=== PATIENT | male | born 1960 | race American Indian/Alaskan Native ===

== ENCOUNTER 2017-11-27 08:37 | Day surgery (SDC) | payer OTHER ==
[~2017-11-27] VITALS: Ht 188 cm; Wt 204.6 kg
[~2017-11-27 08:37] MED LIST: AFREZZA1 EAC1 SC; ALLERGY RELIEF10 MG PO; CETI5 PO; Echinacea & Go1 EACH PO; Excedrin Extra1 EACH PO; GABA400 PO; Hydrocodone-Ap1 EA20 PO; INSR10I SC; INSULANPEN SC; LISHYD1012 PO; METH5 PO; SIMV10 PO; TURMERIC500 M1 PO; VENL75ER PO; VENLAFAXINE H37.5 MG PO; VITAMIN C ROSE HIPS PO; ZESTORETIC 20-121 EA PO
== END 2017-11-27 11:25 | disposition home or self-care (01) ==
LOC: ORSCMMR 08:37 → ORD 09:30 → ORSCMMR 10:15 → ORD 10:30 → ORSCMMR 11:25
PROVIDERS: Surgery
PROC: 0DBH8ZX Excision of Cecum, Via Natural or Artificial Opening Endoscopic, Diagnostic (ICD-10-PCS; principal; 2017-11-27 10:15)
DX: Z86.010 Personal history of colon polyps (principal); D12.0 Benign neoplasm of cecum; G47.30 Sleep apnea, unspecified; E11.9 Type 2 diabetes mellitus without complications; F32.9 Major depressive disorder, single episode, unspecified; I10 Essential (primary) hypertension; G47.33 Obstructive sleep apnea (adult) (pediatric); E78.00 Pure hypercholesterolemia, unspecified; E66.01 Morbid (severe) obesity due to excess calories; Z68.43 Body mass index [BMI] 50.0-59.9, adult; Z79.4 Long term (current) use of insulin; Z79.899 Other long term (current) drug therapy
CPT/HCPCS: 82947; 88305; J7120

== ENCOUNTER 2021-04-16 07:30 | Inpatient (IN) | payer OTHER ==
[~2021-04-16] VITALS: Ht 188 cm; Wt 196.4 kg
[~2021-04-16 07:30] MED LIST changes: +GABA300 PO; -VENLAFAXINE H37.5 MG PO
[2021-04-16 08:34] LABS: Source, Urine Catheter
[2021-04-16] MEDS ORDERED: HUMULIN R500 UNIT/1 SC ×2 (08:41→08:42)
[2021-04-16 08:43] LABS: Appearance, Urine Cloudy (Clear); Bilirubin, Urine Neg (Neg); Blood, Urine 5+ (Neg); Color, Urine Yellow (P-Yellow); Glucose Qualitative, Urine 2+ (Neg); Ketones, Urine Neg (Neg); Leukocyte Esterase, Urine 3+ (Neg); Nitrite, Urine Neg (Neg); Protein, Urine 4+ (Neg); Urobilinogen, Urine NORM (Normal)
[2021-04-16 08:53] LABS: Hematocrit 34.3 % (37.0-53.0); Hemoglobin 11.1 g/dL (13.5-17.5); Mean Corpuscular HGB 29.6 pg (26.0-34.0); Mean Corpuscular HGB Conc 32.4 g/dL (31.5-36.5); Mean Corpuscular Volume 92 fL (80-100); Mean Platelet Volume 10.4 fL (9.1-12.4); Platelet Count 334 K/mm3 (150-400); RDW Coefficient Variation 13.3 % (11.7-14.2); Red Blood Cell Count 3.75 M/mm3 (4.30-5.90)
[2021-04-16 08:57] LABS: White Blood Cell Count 55.48 K/mm3 (4.00-11.30)
[2021-04-16 09:02] LABS: White Blood Cells, Urine TNTC /hpf (0-5)
[2021-04-16 09:03] LABS: Bacteria Many /hpf; Squamous Epithelial Cells Few /hpf (Few)
[2021-04-16 09:04] LABS: Transitional Epithelial Cells Rare /hpf (0-Rare)
[2021-04-16 09:14] LABS: BAND PERCENT MAN 12 % (0-8); BASOPHILS PERCENT MAN 0 % (0-2); EOSINOPHILS PERCENT MAN 0 % (0-6); LYMPHOCYTES ABSOLUTE MAN 0.55 K/mm3 (0.84-5.20); LYMPHOCYTES PERCENT MAN 1 % (21-46); MONOCYTES ABSOLUTE MAN 1.66 K/mm3 (0.16-1.47); MONOCYTES PERCENT MAN 3 % (4-13); NEUTROPHILS ABSOLUTE MAN 53.26 K/mm3 (1.96-9.15); SEG NEUTROPHILS PERCENT MAN 84 % (41-73); TOTAL CELLS COUNTED 100
[2021-04-16 09:23] LABS: Alanine Aminotransfer (ALT/SGP 30 U/L (12-78); Albumin, Blood 2.5 g/dL (3.4-5.0); Albumin/Globulin Ratio 0.7 (0.8-1.8); Alk Phos 82 U/L (50-136); Anion Gap 13 mmol/L (6-16); Aspartate Aminotrans (AST/SGOT 22 U/L (12-37); Bilirubin, Total 0.8 mg/dL (0.1-1.0); Blood Urea Nitrogen 38 mg/dL (8-24); Bun/Creatinine Ratio 14.3 (12.0-20.0); CO2, Blood 20 mmol/L (21-32); Calcium, Blood 7.9 mg/dL (8.5-10.1); Chloride, Blood 105 mmol/L (98-108); Creatinine, Blood 2.66 mg/dL (0.60-1.20); Globulin, Blood 3.7 g/dL (2.2-4.0); Glomerular Filtration Rate 25 (60-); Glucose, Blood 314 mg/dL (70-99); Sodium, Blood 138 mmol/L (136-145); Total Protein, Blood 6.2 g/dL (6.4-8.2); Troponin I <0.015 ng/mL (0.000-0.040)
[2021-04-16 10:05] LABS: C DIFFICILE DNA NEGATIVE (Negative)
[2021-04-16 12:36] LABS: SARS-Cov-2 (COVID-19) PCR, MMC NEGATIVE (NEGATIVE)
[2021-04-16] MEDS ORDERED: HYDCHL25 PO (12:45)
[2021-04-16] MEDS ORDERED: GABA300 PO (12:45)
[2021-04-16] MEDS ORDERED: ALLEGRA ALLERG180 MG PO (12:52)
[2021-04-16] MEDS ORDERED: MELATONIN5 M1 PO (12:57)
[2021-04-16 13:18] LABS: U Amphetamine Screen Not Detected; U Barbituate Screen Not Detected; U Benzodiazapine Screen Not Detected; U Buprenorphine Screen Not Detected; U Cannabinoids Screen Not Detected; U Cocaine Screen Not Detected; U Methadone Screen Not Detected; U Methamphetamine Screen Not Detected; U Opiates Screen DETECTED; U Oxycodone Screen Not Detected; U Phencyclidine Screen Not Detected; U Propoxyphene Screen Not Detected
[2021-04-16 13:43] LABS: Base Excess Venous -10.3 mmol/L; Bicarbonate Venous 16.6 mmol/L (24.0-30.0); PCO2 Venous 37.9 mmHg (38-42); PO2 Venous 51.9 mmHg (38-42); pH Blood Venous 7.26 (7.34-7.37)
[2021-04-16 15:22] LABS: Base Excess Venous -11.7 mmol/L; Bicarbonate Venous 15.8 mmol/L (24.0-30.0); PCO2 Venous 39.5 mmHg (38-42); PO2 Venous 159 mmHg (38-42)
[2021-04-16 15:23] LABS: pH Blood Venous 7.22 (7.34-7.37)
--- NOTE | 2021-04-16 18:32 | NUR ---
PT ARRIVED IN THE UNIT VIA STRETCHER FROM ED PT TRANSFERRED VIA SLIDE SHEET TO HOSPITAL BED REPORT RECEIVED FROM EMI CONN. PT WAS ON LEVOPHED GTT AT 20 AND VASO AT 0.03 UPON ARRIVAL AND BP SYSTOLIC WAS 80'S-90'S, PT WAS GIVEN NS BOLUS AND LR BOLUS PER REPORT LR NOW RUNNING AT 150MLS/HR. PT FULLY ALERT AND ORIENTED, APPEARS DRY, PALE AND WEAK. PT ALSO WAS RUNNING A FEVER 101.1 TYLENOL WAS GIVEN AND BROUGHT TEMP DOWN TO 100. PT C/O ABD AND BACK PAIN WAS GIVEN FENTANYL IN THE ER PT STATED TYLENOL SEEMED TO HELP. PINO DRAINING CLOUDY URINE VIA GRAVITY NOT PUTTING OUT MUCH OUTPUT AT THIS TIME. RIGHT JUGULAR CENTRAL LINE SITE AND DRESSING CDI. PT RESTING AT THIS TIME. VASO ON STAND BY CURRENT BP 109/62 MAP 76. PT ABLE TO MAKE NEEDS KNOWN WILL REPORT TO ONCOMING SHIFT
--- NOTE | 2021-04-16 20:06 | NUR ---
OFFERED PATIENT COUPLE BITES OF JELLO. IMMEDIATELY VOMITED SMALL AMOUNT OF CHUNKY NON-LIQUID EMESIS. MEDICATED WITH ZOFRAN.
--- NOTE | 2021-04-16 20:34 | NUR ---
OXYGEN REMOVED AND CPAP PLACED ON PATIENT. SATS REMAINED ABOVE 93%.
[2021-04-17 04:06] LABS: Hematocrit 34.5 % (37.0-53.0); Hemoglobin 11.2 g/dL (13.5-17.5); Mean Corpuscular HGB 29.8 pg (26.0-34.0); Mean Corpuscular HGB Conc 32.5 g/dL (31.5-36.5); Mean Corpuscular Volume 92 fL (80-100); Mean Platelet Volume 10.6 fL (9.1-12.4); Platelet Count 270 K/mm3 (150-400); RDW Coefficient Variation 13.9 % (11.7-14.2); Red Blood Cell Count 3.76 M/mm3 (4.30-5.90); White Blood Cell Count 45.77 K/mm3 (4.00-11.30)
[2021-04-17 04:28] LABS: Albumin, Blood 2.7 g/dL (3.4-5.0); Albumin/Globulin Ratio 0.6 (0.8-1.8); Bilirubin, Total 0.6 mg/dL (0.1-1.0); Bun/Creatinine Ratio 12.6 (12.0-20.0); Creatinine, Blood 3.5 mg/dL (0.60-1.20); Globulin, Blood 4.2 g/dL (2.2-4.0); Magnesium, Blood 1.7 mg/dL (1.6-2.4); Potassium, Blood 4.9 mmol/L (3.5-5.5); Total Protein, Blood 6.9 g/dL (6.4-8.2)
[2021-04-17 05:56] LABS: BAND PERCENT MAN 13 % (0-8); BASOPHILS PERCENT MAN 0 % (0-2); EOSINOPHILS PERCENT MAN 0 % (0-6); LYMPHOCYTES ABSOLUTE MAN 0.91 K/mm3 (0.84-5.20); LYMPHOCYTES PERCENT MAN 2 % (21-46); METAMYELOCYTE ABSOLUTE MAN 0.91 K/mm3 (0.00-0.00); METAMYELOCYTE PERCENT MAN 2 % (0-0); MONOCYTES ABSOLUTE MAN 2.74 K/mm3 (0.16-1.47); MONOCYTES PERCENT MAN 6 % (4-13); NEUTROPHILS ABSOLUTE MAN 41.19 K/mm3 (1.96-9.15); SEG NEUTROPHILS PERCENT MAN 77 % (41-73); TOTAL CELLS COUNTED 100
--- NOTE | 2021-04-17 05:57 | NUR ---
SHIFT SUMMARY PATIENT ALERT AND ORIENTED WHEN AWAKE THROUGHOUT SHIFT. OCCASIONAL NAUSEA AND 2 EPISODES OF VOMITING THIS SHIFT. MEDICATED WITH ZOFRAN AND REGLAN PER EMAR. LEVOPHED TITRATED TO MAINTAIN STABLE BP. LR RUNNING. ROUTINE ABX. NSR AT 92 PER TELE. STARTED SHIFT ON 2L O2 NC. SWITCHED TO CPAP FOR SLEEP AND MAINTAINED SATS ABOVE 92%. MEDICATED FOR L FLANK AND LOWER BACK PAIN WITH FENTANYL, SEE EMAR. 1 BM THIS SHIFT. PINO PATENT AND DRAINING DARK URINE. DRESSING TO NECK CENTRAL LINE CHANGED THIS SHIFT. CALLS APPROPRIATELY.
--- NOTE | 2021-04-17 07:15 | NUR ---
ASSUMPTION OF CARE: ASSUMED CARE OF PATIENT AT 715 ON 04/17/2021. PATIENT HAD LEVOPHED INFUSING AT 9. NEEDED LINEN CHANGE DUE TO BM OF DIARRHEA. GENERAL WEAKNESS OF EXTREMES, LE WORSE THAN UE. PEDAL PULSES FAINT, FILLING CARRIER REPORTS 1ST DEGREE SR. DENIES CHEST PAIN.LOWER BACK PAIN MEDIACTED PER EMR. RA SAT >94 SPO2. COARSE BILAT. PINO DRAINING TO GRAVITY DARK TEA COLERED.
[2021-04-17 09:16] LABS: Vancomycin, Random 15.8 ug/mL
--- NOTE | 2021-04-17 18:34 | NUR ---
END OF CARE SUMMARY: PATIENT IS NO LONG ON LEVOPHED, HOWEVER, STILL HUNG AND ON STANDBY, AND IS THE VASOPRESSIN. MAP HAS BEEN GREATER THAN 65. DENIES CHEST PAIN. PATIENT HAS BEEN SR, 1ST DEGREE HEART BLOCK WITH OCCASSIONAL PAC'S PAIN HAS ONLY BEEN IN ABD, SUPRAPUBIC, AND BACK, MEDICATED PER EMR. PATIENT IS ON RA. BREATHES BETTER WITH HOB 30 DEGREES. LR GOING AT 150. PATIENT HAS GENERALIZED WEAKNESS OF EXTREMES LOWER WORSE THAN UPPER. ALERT TO SELF, PLACE, PERSON, TIME, AND FOLLOWING DIRECTION. NO SKIN BREAKDOWN, SHIFTS TO DISCOMFORT. CENTRAL LINE IN PLACE FLSUHES AND DRAWS WNL.
--- NOTE | 2021-04-17 19:38 | NUR ---
REPORT RECEIVED-CARE ASSUMED-GTTS/RATES/VITALS NOTED IN FLOWSHEET. SURGE SHIFT ASSESSMENT.
--- NOTE | 2021-04-17 22:27 | NUR ---
PT REQUEST TO STAY SUPINE FOR THE NIGHT-DISCUSSED THE ADVANTAGE TO Q2 TURNS AND REPOSITIONING-DISCUSSED THE CHANCE OF SKIN BRAKEDOWN IF NOT TURNING- PT IS A&O-ABLE TO MAKE DECISIONS-DOES NOT WANT TO TURN AT THIS TIME-WILL CONTINUE TO CHECK IN WITH PT T/O NIGHT ON REPOSITIONING.
--- NOTE | 2021-04-18 00:05 | NUR ---
ASSESS NO CHANGES WITH PT-ON CPAP -RA, RESTING. BM X 1 TONIGHT. CONTINUE ASSESSMENTS AND CARE.
--- NOTE | 2021-04-18 05:58 | NUR ---
END OF SHIFT NOTE PT SLEPT ON CPAP-RA OVERNIGHT.PT A&O X 4. REQUESTED PAIN MEDS X2 OVERNIGHT FOR LEFT FLANK AND BACK PAIN. LEVO AND VASO REMAINED OFF ENTIRE SHIFT. LR INFUSING @ 150 ML/HR. 1 LRG BM. PINO WITH LOW UO TOTAL OF 300 ML TEA COLOR OVERNIGHT. NO LABS WERE ORDERED FOR AM- CONTINUE ASSESSEMENTS AND CARE TILL REPORT OFF TO ONCOMING SHIFT RN.
[2021-04-18 07:25] LABS: Hematocrit 28.5 % (37.0-53.0); Hemoglobin 9.5 g/dL (13.5-17.5); Mean Corpuscular HGB Conc 33.3 g/dL (31.5-36.5); Mean Corpuscular Volume 90 fL (80-100); Mean Platelet Volume 10.3 fL (9.1-12.4); Platelet Count 175 K/mm3 (150-400); RDW Standard Deviation 46.5 fL (35.1-46.3); Red Blood Cell Count 3.17 M/mm3 (4.30-5.90); White Blood Cell Count 22.16 K/mm3 (4.00-11.30)
[2021-04-18 07:41] LABS: Anion Gap 9 mmol/L (6-16); Blood Urea Nitrogen 58 mg/dL (8-24); Bun/Creatinine Ratio 16.2 (12.0-20.0); CO2, Blood 21 mmol/L (21-32); Chloride, Blood 106 mmol/L (98-108); Creatinine, Blood 3.59 mg/dL (0.60-1.20); Glomerular Filtration Rate 18 (60-); Glucose, Blood 137 mg/dL (70-99); Phosphorus, Blood 3.5 mg/dL (2.5-4.9); Sodium, Blood 136 mmol/L (136-145)
[2021-04-18 07:45] LABS: BAND PERCENT MAN 7 % (0-8); BASOPHILS PERCENT MAN 0 % (0-2); EOSINOPHILS PERCENT MAN 0 % (0-6); LYMPHOCYTES ABSOLUTE MAN 0.88 K/mm3 (0.84-5.20); LYMPHOCYTES PERCENT MAN 4 % (21-46); MONOCYTES ABSOLUTE MAN 0.22 K/mm3 (0.16-1.47); MONOCYTES PERCENT MAN 1 % (4-13); NEUTROPHILS ABSOLUTE MAN 21.05 K/mm3 (1.96-9.15); SEG NEUTROPHILS PERCENT MAN 88 % (41-73); TOTAL CELLS COUNTED 100
--- NOTE | 2021-04-18 09:53 | NUR ---
ASSUMED CARE REPORT FROM DANIA CONN AT 0700. PT RESTING IN BED. A&O X4. FOLLOWS COMMANDS, ABLE TO MAKE NEEDS KNOWN. C/O LEFT FLANK PAIN, 03/05. MEDICATED c FENTANYL ORDERED. ABD ROUND, SOFT, DIFFUSE TENDERNESS. BT X 4. HX OF STONE c STENT PLACEMENT. PINO IN PLACE, YELLOW CLOUDY URINE OUT. LEVO ON STANDBY SINCE YESTERDAY. STATUS CHANGED TO MED s TELE. LR INFUSING AT 150 ML/HR. CVC TO RIJ REMOVED, PETROLEUM DRESSING AND OPSITE PLACED. POWERGLIDE PLACED TO [facility]. PT TRANSFERRED TO MEDICAL FLOOR. ALL BELONGINGS c PT. REPORT TO AHMET CONN.
--- NOTE | 2021-04-18 11:20 | NUR ---
ASSUMPTION OF CARE THIS NURSE RECEIVED REPORT FROM CHANDRAKANT CONN ON PCU. THE PATIENT ARRIVED AT 1000. THE PATIENT'S VITALS ARE STABLE AND PATIENT HAS BEEN ACCLIMATED TO THE ROOM.
--- NOTE | 2021-04-18 17:23 | NUR ---
SHIFT SUMMARY THE PATIENT IS ALERT AND ORIENTED, AND COOPERATIVE WITH CARE. THE PATIENT WORKED WITH PHYSICAL THERAPY AND OCCUPATIONAL THERAPY AT BEDSIDE THIS SHIFT. THE PATIENT HAS BEEN RECEIVING PAIN MEDS ORDERED. PINO PATENT AND DRAINING TO GRAVITY. LACTATED RINGERS RUNNING AT 200MLS/HR. NO ACUTE CHANGES THIS SHIFT, VSS.
[2021-04-19 04:33] LABS: BASOPHILS ABSOLUTE AUTO 0.06 K/mm3 (0.00-0.23); BASOPHILS PERCENT AUTO 0 % (0-2); Hematocrit 30.4 % (37.0-53.0); LYMPHOCYTES ABSOLUTE AUTO 0.86 K/mm3 (0.84-5.20); LYMPHOCYTES PERCENT AUTO 6 % (21-46); MONOCYTES ABSOLUTE AUTO 0.87 K/mm3 (0.16-1.47); MONOCYTES PERCENT AUTO 6 % (4-13); Mean Corpuscular HGB 29.4 pg (26.0-34.0); Mean Corpuscular HGB Conc 32.9 g/dL (31.5-36.5); Mean Corpuscular Volume 89 fL (80-100); Mean Platelet Volume 10.8 fL (9.1-12.4); Platelet Count 189 K/mm3 (150-400); RDW Coefficient Variation 13.7 % (11.7-14.2); White Blood Cell Count 15.55 K/mm3 (4.00-11.30)
[2021-04-19 04:38] LABS: EOSINOPHILS ABSOLUTE AUTO 0.08 K/mm3 (0.00-0.68); EOSINOPHILS PERCENT AUTO 1 % (0-6); IMMATURE GRAN ABSOLUTE AUTO 0.19 K/mm3 (0.00-0.10); IMMATURE GRAN PERCENT AUTO 1 % (0-1); NEUTROPHILS ABSOLUTE AUTO 13.49 K/mm3 (1.96-9.15); NEUTROPHILS PERCENT AUTO 87 % (41-73)
[2021-04-19 04:53] LABS: Bun/Creatinine Ratio 19.7 (12.0-20.0); Calcium, Blood 8.3 mg/dL (8.5-10.1); Potassium, Blood 3.8 mmol/L (3.5-5.5)
--- NOTE | 2021-04-19 07:22 | NUR ---
PATIENT SUMMARY PATIENT IS ALERT AND ORIENTED X4. VS STABLE FOR PATIENT. PAIN MEDICATION GIVEN TO PATIENT PER REQUEST AROUND THE CLOCK. PT COMPLAINED OF BACK PAIN. HELD HEPARIN MY SHIFT D/T BLEEDING GUMS. ENDORSED TO ONCOMING SHIFT. MEDICATION AND CARES COMPLETED AND GIVEN ORDERED ACCORDING TO NURSING JUDGEMENT. ALL UNFINISHED CARES ENDORSED TO ONCOMING RN.
[2021-04-19] MEDS ORDERED: CIPR500 PO (12:13)
[2021-04-19] MEDS ORDERED: INSULANPEN SC (14:38)
[2021-04-19] MEDS ORDERED: HUMULIN R500 UNIT/1 SC ×2 (14:40)
[2021-04-19 15:05] LABS: SARS-Cov-2 (COVID-19) PCR, MMC NEGATIVE (NEGATIVE)
--- NOTE | 2021-04-19 18:50 | NUR ---
PATIENT DISCHARGED TO SNF VIA GURNEY THROUGH [facility]. BELONGINGS WITH THE PATIENT. THERE IS NO CONCERNS FOR THE PATIENT UPON DISCHARGE.
== END 2021-04-19 19:10 | DRG 698 ==
LOC: ER 07:30 → ICUW 12:34 → PCU 15:43 → MEDS 04-18 10:07
PROVIDERS: Emergency Medicine; Family Medicine; Hospitalist; Nurse Practitioner Acute Care; Pharmacist; ADMIT Hospitalist
PROC: 3E033XZ Introduction of Vasopressor into Peripheral Vein, Percutaneous Approach (ICD-10-PCS; principal; 2021-04-16)
DX: T83.592A Infection and inflammatory reaction due to indwelling ureteral stent, initial encounter (principal); A41.59 Other Gram-negative sepsis; R65.21 Severe sepsis with septic shock; N17.9 Acute kidney failure, unspecified; N39.0 Urinary tract infection, site not specified; N28.89 Other specified disorders of kidney and ureter; E11.9 Type 2 diabetes mellitus without complications; D64.9 Anemia, unspecified; F32.9 Major depressive disorder, single episode, unspecified; E66.01 Morbid (severe) obesity due to excess calories; I10 Essential (primary) hypertension; G43.909 Migraine, unspecified, not intractable, without status migrainosus; Z88.5 Allergy status to narcotic agent; Z88.0 Allergy status to penicillin; Z79.4 Long term (current) use of insulin; Z79.899 Other long term (current) drug therapy
CPT/HCPCS: 36415; 36556; 51702; 71045; 74150; 76705; 80048; 80053; 80202; 81001; 82550; 82803; 82947; 83605; 83690; 83735; 83880; 84100; 84145; 84484; 85025; 87040; 87077; 87086; 87186; 87493; 93005; 93010; 94762; 96361-59; 96365-59; 96366-59; 96367-59; 96368; 96375-59; 97110; 97162; 97166; 97530; 99285-25; A9270; C1751; J1170; J1644; J1815; J1956; J2185; J2405; J2765; J3010; J3370; J3475; J7030; J7040; J7050; J7060; J7120; P9046; U0004

== ENCOUNTER 2021-05-19 14:27 | Emergency (ER) | payer OTHER ==
[~2021-05-19] VITALS: Ht 188 cm; Wt 186.9 kg
[~2021-05-19 14:27] MED LIST changes: +ALLEGRA ALLERG180 MG PO; +CIPR500 PO; +HUMULIN R500 UNIT/1 SC; +HYDCHL25 PO; +MELATONIN5 M1 PO
[2021-05-19] MEDS ORDERED: LISI20 PO (15:05)
[2021-05-19 15:06] LABS: Alanine Aminotransfer (ALT/SGP 13 U/L (12-78); Albumin, Blood 2.8 g/dL (3.4-5.0); Albumin/Globulin Ratio 0.5 (0.8-1.8); Alk Phos 98 U/L (50-136); Anion Gap 6 mmol/L (6-16); Aspartate Aminotrans (AST/SGOT 13 U/L (12-37); Bilirubin, Total 0.6 mg/dL (0.1-1.0); Blood Urea Nitrogen 21 mg/dL (8-24); Bun/Creatinine Ratio 19.6 (12.0-20.0); CO2, Blood 22 mmol/L (21-32); Calcium, Blood 9.1 mg/dL (8.5-10.1); Chloride, Blood 105 mmol/L (98-108); Creatinine, Blood 1.07 mg/dL (0.60-1.20); Globulin, Blood 5.3 g/dL (2.2-4.0); Glomerular Filtration Rate >60 (60-); Glucose, Blood 192 mg/dL (70-99); Potassium, Blood 4.8 mmol/L (3.5-5.5); Sodium, Blood 133 mmol/L (136-145); Total Protein, Blood 8.1 g/dL (6.4-8.2)
[2021-05-19 16:45] LABS: Source, Urine Catheter
[2021-05-19 16:50] LABS: Appearance, Urine Clear (Clear); Bilirubin, Urine Neg (Neg); Blood, Urine 5+ (Neg); Color, Urine Yellow (P-Yellow); Glucose Qualitative, Urine Neg (Neg); Ketones, Urine Neg (Neg); Leukocyte Esterase, Urine 3+ (Neg); Nitrite, Urine Neg (Neg); Protein, Urine 3+ (Neg); Urobilinogen, Urine NORM (Normal)
[2021-05-19 17:03] LABS: Squamous Epithelial Cells Few /hpf (Few); White Blood Cells, Urine TNTC /hpf (0-5)
[2021-05-19 17:06] LABS: Bacteria Many /hpf; Yeast/Fungi Urine Many /hpf
[2021-05-19 17:19] LABS: BASOPHILS ABSOLUTE AUTO 0.05 K/mm3 (0.00-0.23); BASOPHILS PERCENT AUTO 0 % (0-2); EOSINOPHILS PERCENT AUTO 0 % (0-6); Hematocrit 34.4 % (37.0-53.0); Hemoglobin 11.4 g/dL (13.5-17.5); IMMATURE GRAN ABSOLUTE AUTO 0.09 K/mm3 (0.00-0.10); IMMATURE GRAN PERCENT AUTO 1 % (0-1); LYMPHOCYTES ABSOLUTE AUTO 1.32 K/mm3 (0.84-5.20); LYMPHOCYTES PERCENT AUTO 10 % (21-46); MONOCYTES ABSOLUTE AUTO 0.87 K/mm3 (0.16-1.47); MONOCYTES PERCENT AUTO 6 % (4-13); Mean Corpuscular HGB 29.4 pg (26.0-34.0); Mean Corpuscular HGB Conc 33.1 g/dL (31.5-36.5); Mean Corpuscular Volume 89 fL (80-100); Mean Platelet Volume 10.2 fL (9.1-12.4); NEUTROPHILS ABSOLUTE AUTO 11.22 K/mm3 (1.96-9.15); NEUTROPHILS PERCENT AUTO 83 % (41-73); Platelet Count 324 K/mm3 (150-400); RDW Standard Deviation 45.1 fL (35.1-46.3); Red Blood Cell Count 3.88 M/mm3 (4.30-5.90); White Blood Cell Count 13.55 K/mm3 (4.00-11.30)
[2021-05-19 17:34] LABS: International Normalized Ratio 1.1; Prothrombin Time Results 11.5 Sec (9.7-11.5)
[2021-05-19] MEDS ORDERED: ONDA4ODT MM ×2 (18:42→19:15)
[2021-05-19] MEDS ORDERED: LEVFLO500 PO ×2 (18:42→19:15)
[2021-05-19] MEDS ORDERED: IBUP800 PO ×2 (18:42→19:15)
[2021-05-19] MEDS ORDERED: Norco 5-325 Ta1 EACH PO (19:15)
== END 2021-05-19 19:15 | disposition home or self-care (01) ==
LOC: ER 14:27
PROVIDERS: Emergency Medicine
DX: N39.0 Urinary tract infection, site not specified (principal); Z88.0 Allergy status to penicillin; Z88.5 Allergy status to narcotic agent; Z79.899 Other long term (current) drug therapy; Z79.4 Long term (current) use of insulin; E11.9 Type 2 diabetes mellitus without complications; I10 Essential (primary) hypertension; G43.909 Migraine, unspecified, not intractable, without status migrainosus; D64.9 Anemia, unspecified
CPT/HCPCS: 36415; 71045; 80053; 81001; 83605; 85025; 85610; 85730; 87077; 87086; 87186; 93005; 93010; 96365; 96375; 99284-25; A9270; J1885; J1956; J2405

== ENCOUNTER 2021-12-21 22:22 | Observation (INO) | payer OTHER ==
[~2021-12-21] VITALS: Ht 175.3 cm; Wt 188.3 kg
[~2021-12-21 22:22] MED LIST changes: +IBUP800 PO; +LEVFLO500 PO; +LISI20 PO; +Norco 5-325 Ta1 EACH PO; +ONDA4ODT MM
[2021-12-21 22:43] LABS: Hematocrit 37.8 % (37.0-53.0); Hemoglobin 12.6 g/dL (13.5-17.5); Mean Corpuscular HGB 29.2 pg (26.0-34.0); Mean Corpuscular HGB Conc 33.3 g/dL (31.5-36.5); Mean Corpuscular Volume 88 fL (80-100); Mean Platelet Volume 10.3 fL (9.1-12.4); Platelet Count 428 K/mm3 (150-400); RDW Coefficient Variation 14.1 % (11.7-14.2); RDW Standard Deviation 45.5 fL (35.1-46.3); Red Blood Cell Count 4.31 M/mm3 (4.30-5.90); White Blood Cell Count 11.81 K/mm3 (4.00-11.30)
[2021-12-21 23:01] LABS: Albumin/Globulin Ratio 0.8 (0.8-1.8); Bilirubin, Total 0.5 mg/dL (0.1-1.0); Bun/Creatinine Ratio 17.1 (12.0-20.0); Calcium, Blood 8.8 mg/dL (8.5-10.1); Creatinine, Blood 1.29 mg/dL (0.60-1.20); Globulin, Blood 3.8 g/dL (2.2-4.0); Potassium, Blood 3.1 mmol/L (3.5-5.5); Total Protein, Blood 6.8 g/dL (6.4-8.2)
[2021-12-21] MEDS ORDERED: HYDCHL25 (23:02)
[2021-12-21 23:14] LABS: BAND PERCENT MAN 7 % (0-8); BASOPHILS PERCENT MAN 0 % (0-2); EOSINOPHILS ABSOLUTE MAN 0.47 K/mm3 (0.00-0.68); EOSINOPHILS PERCENT MAN 4 % (0-6); LYMPHOCYTES ABSOLUTE MAN 4.36 K/mm3 (0.84-5.20); LYMPHOCYTES PERCENT MAN 37 % (21-46); MONOCYTES ABSOLUTE MAN 0.23 K/mm3 (0.16-1.47); MONOCYTES PERCENT MAN 2 % (4-13); MYELOCYTE ABSOLUTE MAN 0.23 K/mm3 (0.00-0.00); MYELOCYTE PERCENT MAN 2 % (0-0); NEUTROPHILS ABSOLUTE MAN 6.49 K/mm3 (1.96-9.15); SEG NEUTROPHILS PERCENT MAN 48 % (41-73); TOTAL CELLS COUNTED 100
[2021-12-21 23:58] LABS: Base Excess Venous -8.7 mmol/L; Bicarbonate Venous 16.6 mmol/L (24.0-30.0); PO2 Venous 48.8 mmHg (38-42); pH Blood Venous 7.14 (7.34-7.37)
[2021-12-22 01:39] LABS: Magnesium, Blood 1.9 mg/dL (1.6-2.4)
[2021-12-22 01:44] LABS: International Normalized Ratio 1.14; Prothrombin Time Results 11.9 Sec (9.7-11.5)
[2021-12-22] MEDS ORDERED: CENTRUM SILVER1 EAC2 PO (02:08)
[2021-12-22] MEDS ORDERED: THERA-D2000 UNIT PO (02:09)
[2021-12-22] MEDS ORDERED: B COMPLEX FORM0.4 MG PO (02:09)
--- NOTE | 2021-12-22 02:30 | NUR ---
PT ADMITTED TO ROOM ICU 13 UNDER ICU STATUS AT 0125 THIS MORNING. PT SLIDE TRANSFERRED TO BED FROM [facility]. PT ALERT AND ORIENTED. PLEASANT AND COOPERATIVE WITH CARE AND ASSESSMENT. NO COMPLAINTS OF DYSPNEA. DOES HAVE SOME MILD CHEST DISCOMFORT THAT DOES DECREASE ONCE TO BED. MAINTAINS > 90 PERCENT SATURATION ON ROOM AIR. COMES IN TO ROOM. BOTH HER AND PT GOOD HISTORIANS. CONSENTS SIGNED. WILL REVIEW CHART AND PLAN OF CARE FOR THIS PT.
[2021-12-22 04:56] LABS: Hematocrit 36.2 % (37.0-53.0); Hemoglobin 12.2 g/dL (13.5-17.5); Mean Corpuscular HGB 29.3 pg (26.0-34.0); Mean Corpuscular HGB Conc 33.7 g/dL (31.5-36.5); Mean Corpuscular Volume 87 fL (80-100); Mean Platelet Volume 10.1 fL (9.1-12.4); Platelet Count 353 K/mm3 (150-400); RDW Coefficient Variation 14.3 % (11.7-14.2); RDW Standard Deviation 45.6 fL (35.1-46.3); Red Blood Cell Count 4.17 M/mm3 (4.30-5.90); White Blood Cell Count 32.59 K/mm3 (4.00-11.30)
--- NOTE | 2021-12-22 05:05 | NUR ---
PT CONTINUES ON INSULIN DRIP AT 6 UNITS PER HOUR. SEE GLUCOSE TREND. PT HAS BEEN ABLE TO MOVE ABOUT IN BED ON HIS OWN. ASSISTS WITH TURNS FOR BEDPAN. HAS HAD SEVERAL LOOSE BM'S. DID STATE HE FELT SOME ABDOMINAL CRAMPING EARLIER IN SHIFT. NO FURTHER COMPLAINTS CHEST PAIN OR SHORTNESS OF BREATH. WILL CONTINUE TO MONITOR PT, AND WILL REPORT OFF TO ONCOMING RN.
[2021-12-22 05:15] LABS: Albumin, Blood 3.1 g/dL (3.4-5.0); Albumin/Globulin Ratio 0.8 (0.8-1.8); Bilirubin, Total 0.3 mg/dL (0.1-1.0); Calcium, Blood 8.7 mg/dL (8.5-10.1); Creatinine, Blood 1.41 mg/dL (0.60-1.20); Globulin, Blood 3.8 g/dL (2.2-4.0); Potassium, Blood 4.2 mmol/L (3.5-5.5); Total Protein, Blood 6.9 g/dL (6.4-8.2)
[2021-12-22 05:22] LABS: BAND PERCENT MAN 17 % (0-8); BASOPHILS PERCENT MAN 0 % (0-2); EOSINOPHILS PERCENT MAN 0 % (0-6); LYMPHOCYTES ABSOLUTE MAN 1.62 K/mm3 (0.84-5.20); LYMPHOCYTES PERCENT MAN 5 % (21-46); MONOCYTES ABSOLUTE MAN 0.65 K/mm3 (0.16-1.47); MONOCYTES PERCENT MAN 2 % (4-13); SEG NEUTROPHILS PERCENT MAN 76 % (41-73); TOTAL CELLS COUNTED 100
[2021-12-22 07:17] LABS: CPK Creatine Kinase 90 U/L (39-308)
--- NOTE | 2021-12-22 08:20 | NUR ---
ASSUMPTION OF CARE RECEIVED REPORT FROM KIYA CONN. ASSUMED CARE OF PATIENT. PATIENT A/O, CPAP IN PLACE. CBG CHECKED WITH INSULIN DRIP CONTINUING AT 9UNIT/HR. PATIENT WAS ABLE TO USE URINAL AND BEDPAN INDEPENDENTLY. TROPONIN ELEVATED, DR. LINDSAY CONSULT CALLED AND EKG OBTAINED. DR. LINDSAY CURRENTLY TO BEDSIDE. PATIENT STATED HE HAD CHEST DISCOMFORT 12/21 AFTERNOON BUT THOUGHT IT WAS INDIGESTION. CURRENTLY DENIES CHEST PAIN OR OTHER DISCOMFORTS. WILL REVIEW ORDERS AND TREAT PRESCRIBED.
[2021-12-22 08:24] LABS: Source, Urine Clean Catch
[2021-12-22 08:42] LABS: Bilirubin, Urine Neg (Neg); Blood, Urine 4+ (Neg); Glucose Qualitative, Urine 4+ (Neg); Ketones, Urine Neg (Neg); Leukocyte Esterase, Urine 2+ (Neg); Nitrite, Urine Neg (Neg); Protein, Urine 2+ (Neg); Specific Gravity, Urine 1.015 (1.003-1.022); Urobilinogen, Urine NORM (Normal)
[2021-12-22 08:54] LABS: U Amphetamine Screen Not Detected; U Barbituate Screen Not Detected; U Benzodiazapine Screen Not Detected; U Buprenorphine Screen Not Detected; U Cannabinoids Screen Not Detected; U Cocaine Screen Not Detected; U Methadone Screen Not Detected; U Methamphetamine Screen Not Detected; U Opiates Screen Not Detected; U Oxycodone Screen Not Detected; U Phencyclidine Screen Not Detected; U Propoxyphene Screen Not Detected
[2021-12-22 08:59] LABS: Appearance, Urine Hazy (Clear); Color, Urine Yellow (P-Yellow)
[2021-12-22 09:01] LABS: Bacteria Few /hpf; Squamous Epithelial Cells Few /hpf (Few); White Blood Cells, Urine 25-50 /hpf (0-5); Yeast/Fungi Urine Rare /hpf
--- NOTE | 2021-12-22 09:55 | NUR ---
ECHO TAKING PLACE. ORDERED COVID SWAB REQUESTED BY SCRIPT WRITER. AWAITING SUPPLY FROM LAB, WILL PERFORM AVAILABLE.
[2021-12-22 09:59] LABS: CHOL/HDL RATIO 5.6; Cholesterol 135 mg/dL (50-200); HDL Cholesterol 24 mg/dL (>39); LDL/HDL RATIO 2.3; Low Density Lipoprotein Chol 55 mg/dL (0-110); Triglycerides 279 mg/dL (30-160); Very Low Density Lipoprot Chol 55 mg/dL (6-32)
[2021-12-22 11:07] LABS: SARS-Cov-2 (COVID-19) PCR, MMC NEGATIVE (NEGATIVE)
[2021-12-22 12:01] LABS: Bun/Creatinine Ratio 19.7 (12.0-20.0); Calcium, Blood 8.5 mg/dL (8.5-10.1); Creatinine, Blood 1.22 mg/dL (0.60-1.20); Potassium, Blood 4.2 mmol/L (3.5-5.5)
--- NOTE | 2021-12-22 12:26 | NUR ---
PROCEDURE PATIENT OUT OF ROOM AT THIS TIME TO OUTSIDE MACHINIST SUPERVISOR
--- NOTE | 2021-12-22 14:14 | NUR ---
RETURNED TO ROOM PATIENT RETURNED TO ROOM FROM [facility] AT 1400. RECEIVED REPORT FROM [facility] SENIA EDOUARD. PATIENT WITH TR BAND TO RIGHT RADIAL WITH 11CC OF AIR IN PLACE. PATIENT A/O WITH NO OTHER ACUTE CHANGES FROM PREVIOUS ASSESSMENT. INSULIN DECREASED TO 5UNIT/HR, CALLED DR. MARTIN WITH NO ANSWER AT THIS TIME TO REPORT PATIENTS CBG AND DECREASED INSULIN. WILL ATTEMPT TO CALL AGAIN.
[2021-12-22 15:47] LABS: CPK Creatine Kinase 153 U/L (39-308)
--- NOTE | 2021-12-22 17:44 | NUR ---
SHIFT SUMMARY PATIENT WITH ELEVATED TROP AT START OF SHIFT, DR. MARTIN AWARE. NEW ORDERS RECEIVED, EKG AND ECHO COMPLETED. DR. LINDSAY CONSULTED AND PATIENT TAKEN TO OPERATIONS TEAM LEADER. RETURNED WITH RIGHT RADIAL TR BAND. INITIAL BLEED WHEN ATTEMPTING TO DEFLATED, WAS ABLE TO SUCCESSFULLY REMOVE. HEPARIN WAS RESTARTED AT 1600 AT 15U/KG. INSULIN DRIP DISCONTINUED AND S/S ORDERED. DIET CHANGED FROM NPO TO ADA/CARDIAC. IVF OF NS INFUSED AT 200ML/HR FOR 1L THEN SWITCHED BACK TO 125ML/HR. REMAINED TO BEDSIDE THROUGH DAY. HOME CPAP BROUGHT IN TO USE TONIGHT. PATIENT COOPERATIVE AND PLEASANT WITH CARE. PLAN REVIEWED WITH PATIENT IN DETAIL AND EDUCATION PROVIDED REGARDING PRECAUTIONS TO TAKE WITH RIGHT ARM. WILL CONTINUE TO MONITOR AND REPORT TO ONCOMING RN.
--- NOTE | 2021-12-22 19:45 | NUR ---
PATIENT RESTING QUIETLY, C/O SLIGHT PAIN TO HIS BACK AND HIPS WHICH IS HIS NORMAL. NO C/O CHEST PAIN OR NEW PAIN AT THIS TIME. RIGHT WRIST DRESSING INTACT WITH NO OOZING OR SWELLING, ARM BOARD IN PLACE TO HELP PATIENT REMEMBER TO NOT USE HIS RIGHT ARM TO REPOSITION OR ICING AND GLAZE MAKER ANYTHING HEAVY. HEPARIN DRIP CONTINUE PER PHARMACY.
--- NOTE | 2021-12-22 22:09 | NUR ---
PATIENT ABLE TO USE BEDPAN, PASSING SMALL LOOSE BRIGHT RED MUCUS STOOL. PATIENT VERBALIZED HAVING HEMORRHOIDS. BP STABLE. WILL CONTINUE TO MONITOR.
[2021-12-23 04:08] LABS: Hematocrit 33.1 % (37.0-53.0); Hemoglobin 10.8 g/dL (13.5-17.5); Mean Corpuscular HGB 28.7 pg (26.0-34.0); Mean Corpuscular HGB Conc 32.6 g/dL (31.5-36.5); Mean Corpuscular Volume 88 fL (80-100); Mean Platelet Volume 10.2 fL (9.1-12.4); Platelet Count 278 K/mm3 (150-400); RDW Coefficient Variation 14.8 % (11.7-14.2); Red Blood Cell Count 3.76 M/mm3 (4.30-5.90); White Blood Cell Count 16.13 K/mm3 (4.00-11.30)
[2021-12-23 04:57] LABS: Albumin, Blood 2.8 g/dL (3.4-5.0); Albumin/Globulin Ratio 0.7 (0.8-1.8); Bilirubin, Total 0.4 mg/dL (0.1-1.0); Bun/Creatinine Ratio 17.1 (12.0-20.0); Calcium, Blood 8.2 mg/dL (8.5-10.1); Creatinine, Blood 1.29 mg/dL (0.60-1.20); Globulin, Blood 3.8 g/dL (2.2-4.0); Potassium, Blood 4.6 mmol/L (3.5-5.5); Thyroid Stimulating Hormone 0.407 uIU/mL (0.360-4.800); Total Protein, Blood 6.6 g/dL (6.4-8.2)
--- NOTE | 2021-12-23 06:16 | NUR ---
SUMMARY PATIENT SLEEPING WITH HOME CPAP IN PLACE, AWAKENS EASILY WITH NO COMPLAINTS. REPOSITIONING SELF IN BED FOR COMFORT. NO FURTHER BM'S T/O NIGHT. RIGHT WRIST SITE REMAINS STABLE WITH NO SWELLING OR OOZING SEEN, ARM BOARD REMAINS IN PLACE TO RIGHT WRIST. HEPARIN DRIP TITRATED DURING THE NIGHT NOW 18 U/KG/HR.
--- NOTE | 2021-12-23 08:30 | NUR ---
ASSUMED CARE: REPORT RECEIVED FROM PAULINE Sow RN. ASSUMED CARE OF THIS PT AT APPROX 0700. ON ASSESSMENT, THE PT IS RESTING QUIETLY. AWAKENS EASILY TO VERBAL STIMULUS & IS ALERT/ORIENTED TO ALL AT THAT TIME. HE DENIES PAIN. LS CLEAR T/O, PT USING HOME CPAP W/ AUTO SETTINGS ON RA. O2 SATS > 95%. MONITOR SHOWS SR W/ HR 60-70s, BP STABLE. PT TOLERATING PO INTAKE WELL, HAS NO GI COMPLAINTS. VOIDS USING URINAL INDEPENDENTLY. SKIN CONDITION OVERALL INTACT, RIGHT RADIAL PUNCTURE SITE WNL. NO BLEEDING, BRUISING OR HEMATOMA FORMATION NOTED, SURROUNDING TISSUE IS SOFT TO PALPATION. WRIST IMMOBILIZER REMAINS IN PLACE. WILL CONTINUE TO MONITOR & UPDATE NEEDED.
--- NOTE | 2021-12-23 09:15 | NUR ---
DR MARTIN: PROVIDER AT BEDSIDE TO EVAL PT THIS AM. SHE FEELS THAT IF CLEARED BY CARDIOLOGY, THE PT MAY BE ABLE TO DISCHARGE HOME TODAY. DISCUSSED PT's USE OF FOREARM CRUTCHES AT BASELINE. BASED ON THIS, THE PT HAS REQUESTED THAT PHYSICAL & OCCUPATIONAL THERAPIES ASSIST HIM IN MOBILIZING & HELP HIM TO REMAIN ACTIVE WHILE PRACTICING PRECAUTIONS REGARDING RIGHT RADIAL PUNCTURE SITE. ORDERS PLACED FOR PT & OT. NO OTHER CHANGES AT THIS TIME.
[2021-12-23] MEDS ORDERED: ASPI81CH PO (11:32)
[2021-12-23] MEDS ORDERED: ATEN25 PO (11:33)
[2021-12-23] MEDS ORDERED: CLOP75 PO (11:34)
--- NOTE | 2021-12-23 14:05 | NUR ---
DISCHARGE TO HOME: DR YIP HAS BEEN IN THE UNIT & STS THE PT IS SUITABLE FOR DISCHARGE TO HOME FROM CARDIOLOGY STANDPOINT, FOLLOW-UP W/ CARDIOLOGY WITHIN THE MONTH. DISCHARGE EDUCATION HAS BEEN COMPLETED, THE PT & HIS HAS VERBALIZED UNDERSTANDING OF THIS EDUCATION & DENY FURTHER QUESTIONS. PIVs & ALL MONITORS REMOVED, VSS AT TIME OF DISCHARGE. RIGHT RADIAL SITE REMAINS WNL W/ WRIST IMMOBILIZER IN PLACE. PT VERBALIZES UNDERSTANDING OF RADIAL SITE PRECAUTIONS. NEW SCRIPTS FAXED TO [facility], BUT DUE TO [employer] HOLIDAY TODAY, THERE WILL BE A DELAY IN FILLING THESE SCRIPTS. DR MARTIN HAS OKAY'd A 4 DAY SUPPLY BEING CALLED IN TO [facility] SO THAT PT HAS NECESSARY MEDICATIONS UNTIL THEN. ALL BELONGINGS HAVE BEEN TAKEN OUT BY PT's . THIS RN HAS TAKEN PT OUT OF UNIT AT APPROX 1400 VIA .
== END 2021-12-23 14:07 | disposition home or self-care (01) ==
LOC: ER 22:22 → ICUW 22:23 → ER 12-22 00:28 → ICUW 12-22 00:28
PROVIDERS: Internal Medicine; Student in an Organized Health Care Education/Training Program; ADMIT Internal Medicine
DX: I21.4 Non-ST elevation (NSTEMI) myocardial infarction (principal); R57.9 Shock, unspecified; N17.9 Acute kidney failure, unspecified; E87.4 Mixed disorder of acid-base balance; E87.2 Acidosis; R06.89 Other abnormalities of breathing; I25.10 Atherosclerotic heart disease of native coronary artery without angina pectoris; I10 Essential (primary) hypertension; E11.9 Type 2 diabetes mellitus without complications; E66.01 Morbid (severe) obesity due to excess calories; Z88.0 Allergy status to penicillin; Z88.5 Allergy status to narcotic agent; Z79.4 Long term (current) use of insulin; Z79.899 Other long term (current) drug therapy; Z20.822 Contact with and (suspected) exposure to COVID-19
CPT/HCPCS: 36415; 71275; 76937; 80048; 80053; 80061; 81001; 82550; 82803; 82947; 83605; 83690; 83735; 83880; 84443; 84484; 85025; 85027; 85610; 85730; 87086; 93005; 93010; 93454; 94660; 96374; 97116; 97162; 97530; 99152; 99153; 99285-25; A9270; C1769; C1887; C1894; C8929; C9113; G0378; J1644; J1815; J2250; J3010; J3480; J7030; J7040; Q9957; Q9967; U0004

== ENCOUNTER 2023-09-19 19:37 | Emergency (ER) | payer OTHER ==
[~2023-09-19] VITALS: Ht 182.9 cm; Wt 133.8 kg
[~2023-09-19 19:37] MED LIST changes: +ASPI81CH PO; +ATEN25 PO; +B COMPLEX FORM0.4 MG PO; +CENTRUM SILVER1 EAC2 PO; +CLOP75 PO; +DHEA50 M2 PO; +HYDCHL25; +THERA-D2000 UNIT PO
[2023-09-19 19:52] VITALS: BP 158/77
== END 2023-09-19 22:21 | disposition home or self-care (01) ==
LOC: ER 19:37
DX: S01.01XA Laceration without foreign body of scalp, initial encounter (principal); E11.9 Type 2 diabetes mellitus without complications; G47.30 Sleep apnea, unspecified; F32.A Depression, unspecified; W18.30XA Fall on same level, unspecified, initial encounter; W22.8XXA Striking against or struck by other objects, initial encounter; Z88.0 Allergy status to penicillin; Z88.5 Allergy status to narcotic agent; Z79.02 Long term (current) use of antithrombotics/antiplatelets; Z79.4 Long term (current) use of insulin; Z79.82 Long term (current) use of aspirin; Z79.899 Other long term (current) drug therapy
CPT/HCPCS: 70450; 99284-25

== ENCOUNTER 2024-12-23 14:13 | Observation (INO) | payer OTHER ==
[~2024-12-23] VITALS: Ht 182.9 cm; Wt 177.4 kg
[2024-12-23 15:08] LABS: BASOPHILS ABSOLUTE AUTO 0.05 K/mm3 (0.00-0.23); BASOPHILS PERCENT AUTO 0 % (0-2); EOSINOPHILS ABSOLUTE AUTO 0.22 K/mm3 (0.00-0.68); EOSINOPHILS PERCENT AUTO 2 % (0-6); Hemoglobin 15.6 g/dL (13.5-17.5); IMMATURE GRAN ABSOLUTE AUTO 0.12 K/mm3 (0.00-0.10); IMMATURE GRAN PERCENT AUTO 1 % (0-1); LYMPHOCYTES ABSOLUTE AUTO 3.49 K/mm3 (0.84-5.20); LYMPHOCYTES PERCENT AUTO 30 % (21-46); MONOCYTES ABSOLUTE AUTO 0.46 K/mm3 (0.16-1.47); MONOCYTES PERCENT AUTO 4 % (4-13); Mean Corpuscular HGB 29.1 pg (26.0-34.0); Mean Corpuscular HGB Conc 33.2 g/dL (31.5-36.5); Mean Corpuscular Volume 88 fL (80-100); Mean Platelet Volume 10.6 fL (9.1-12.4); NEUTROPHILS ABSOLUTE AUTO 7.23 K/mm3 (1.96-9.15); NEUTROPHILS PERCENT AUTO 63 % (41-73); Platelet Count 354 K/mm3 (150-400); RDW Coefficient Variation 13.7 % (11.7-14.2); Red Blood Cell Count 5.37 M/mm3 (4.30-5.90); White Blood Cell Count 11.57 K/mm3 (4.00-11.30)
[2024-12-23] MEDS ORDERED: OZEMPIC1 MG/0.72 SC (15:12)
[2024-12-23] MEDS ORDERED: GLIP5 PO (15:13)
[2024-12-23] MEDS ORDERED: Nitroglycerin 0.4 MG SUBL SL PRN ×2 (15:30→17:15)
[2024-12-23 16:13] LABS: Albumin, Blood 3.2 g/dL (3.4-5.0); Albumin/Globulin Ratio 0.8 (0.8-1.8); Bilirubin, Total 0.6 mg/dL (0.1-1.0); Creatinine, Blood 0.89 mg/dL (0.60-1.20); Globulin, Blood 3.9 g/dL (2.2-4.0); Potassium, Blood 3.7 mmol/L (3.5-5.5); Total Protein, Blood 7.1 g/dL (6.4-8.2)
[2024-12-23] MEDS ORDERED: OxyCODONE HCL 5 MG TAB PO PRN (18:05)
--- NOTE | 2024-12-23 18:14 | NUR ---
REPORT RECIEVED FROM ER NURSE AT 1810.
[2024-12-23 18:36] VITALS: BP 118/63
--- NOTE | 2024-12-23 19:00 | NUR ---
PT ARRIVED TO PCU AT 1820 VIA GURNEY AND ON RA. PT ABLE TO TRANSFER FROM GURNEY TO BED WITH MINIMAL ASSISTANCE, TOLERATED WELL. PT PRESENT AT TIME OF ARRIVAL. PT ORIENTED TO ROOM AND CALL LIGHT. PT REQUESTED BSC DUE TO "CRAMPING" FEELING IN HIS STOMACH. BARIATRIC COMMODE RETRIEVE AND PT TO BSC. PT REPORTS LOOSE STOOLS "OFF AND ON FOR THE LAST FEW WEEKS." PT REPORTED MUCUS TYPE STOOL "LAST COUPLE DAYS."
[2024-12-23] MEDS ORDERED: Pantoprazole Sodium 40 MG Injection IV ONE (20:55)
[2024-12-23] MEDS ORDERED: Atenolol 50 MG Tab PO SCH (21:00)
[2024-12-23] MEDS ORDERED: Insulin Regular 100 UNIT/ML 10ML Vial SC SCH (21:00)
[2024-12-23] MEDS ORDERED: JARDIANCE10 MG PO (21:31)
[2024-12-23] MEDS ORDERED: ALLEGRA ALLERG180 MG PO (21:31)
[2024-12-23] MEDS ORDERED: ABILIFY MYCITE2 M2 (21:31)
[2024-12-23] MEDS ORDERED: FENO48 PO (21:32)
[2024-12-23] MEDS ORDERED: PROBIOTIC1 EA13 PO (21:32)
[2024-12-23 21:33] LABS: International Normalized Ratio 1.11; Prothrombin Time Results 12.1 Sec (9.7-11.5)
[2024-12-23 21:55] LABS: Hematocrit 47.2 % (37.0-53.0); Hemoglobin 15.8 g/dL (13.5-17.5)
[2024-12-23 23:33] VITALS: BP 141/72
[2024-12-24 02:49] LABS: C DIFFICILE DNA NEGATIVE (Negative)
[2024-12-24 03:12] VITALS: BP 124/65
--- NOTE | 2024-12-24 04:29 | NUR ---
SHIFT SUMMARY PT A&OX4, ABLE TO MAKE NEEDS KNOWN. VSS, AFEBRILE, SPO2 >95% ON RA. PT USES HOME CPAP WHILE ASLEEP. PT DENIES CP/ PRESSURE THIS SHIFT. HE HAS COMPLAINT OF ABDOMINAL PAIN/ CRAMPS AND DIARRHEA. STOOLS ARE LOOSE AND TINGED DARK RED WITH BLOOD. DOCTOR CONTACTED REGARDING THIS, SEE NOTE. PT IS CLEAR LIQUID DIET. CALL LIGHT IS IN REACH, BREATHING IS EVEN AND UNLABORED.
[2024-12-24 04:35] LABS: CHOL/HDL RATIO 3.8; Cholesterol 121 mg/dL (50-200); HDL Cholesterol 32 mg/dL (>39); LDL/HDL RATIO 1.6; Low Density Lipoprotein Chol 52 mg/dL (0-110); Triglycerides 187 mg/dL (30-160); Very Low Density Lipoprot Chol 37 mg/dL (6-32)
[2024-12-24] MEDS ORDERED: Pantoprazole Sodium 40 MG Injection IV SCH (06:00)
[2024-12-24] MEDS ORDERED: Aspirin 81 MG Chew PO SCH (07:00)
[2024-12-24 08:03] VITALS: BP 134/75
[2024-12-24 08:47] LABS: Hematocrit 45.2 % (37.0-53.0); Hemoglobin 15.1 g/dL (13.5-17.5)
[2024-12-24] MEDS ORDERED: Insulin Glargine-Yfgn 100 Unit/mL 3 ML SYR SC SCH (09:00)
[2024-12-24] MEDS ORDERED: Enoxaparin 40 MG/0.4 ML SYR SC SCH (09:00)
[2024-12-24] MEDS ORDERED: Venlafaxine HCl 75 MG CapCR PO SCH (09:00)
[2024-12-24] MEDS ORDERED: Atorvastatin 10 MG Tab PO SCH (09:00)
[2024-12-24] MEDS ORDERED: Atorvastatin 10 MG Tab PO ONE (09:00)
[2024-12-24] MEDS ORDERED: Clopidogrel Bisulfate 75 MG Tab PO SCH (09:00)
[2024-12-24] MEDS ORDERED: Aspirin 325 MG Tab PO SCH (09:00)
[2024-12-24 11:49] LABS: Campylobacter Sp Not Detected (NOT DETECT); Cryptosporidium Not Detected (NOT DETECT); Cyclospora Cayetanensis Not Detected (NOT DETECT); E. Coli O157 Not Detected (NOT DETECT); Enteroaggregative E. coli-EAEC Not Detected (NOT DETECT); Enteropathogenic E. coli-EPEC Not Detected (NOT DETECT); Enterotoxigenic E. coli-ETEC Not Detected (NOT DETECT); Plesiomonas Shigelloides Not Detected (NOT DETECT); Salmonella Sp Not Detected (NOT DETECT); Shiga Toxin-prod E. coli-STEC Not Detected (NOT DETECT); Shigella/Enteroin E. coli-EIEC Not Detected (NOT DETECT); Vibrio Cholerae Not Detected (NOT DETECT); Vibrio Sp Not Detected (NOT DETECT); Yersinia Enterocolitica Not Detected (NOT DETECT)
[2024-12-24 11:50] LABS: Adenovirus F 40/41 Not Detected (NOT DETECT); Astrovirus Not Detected (NOT DETECT); Entamoeba Histolytica Not Detected (NOT DETECT); Giardia Lamblia Not Detected (NOT DETECT); Norovirus GI/GII Not Detected (NOT DETECT); Rotavirus A Not Detected (NOT DETECT); Sapovirus Not Detected (NOT DETECT)
[2024-12-24 12:24] VITALS: BP 122/66
[2024-12-24] MEDS ORDERED: Aminophylline 250MG / 10ML 10 ML Vial ONE (13:11)
[2024-12-24] MEDS ORDERED: Regadenoson 0.4 MG/5 ML SYRINGE ONE (13:12)
[2024-12-24 15:23] VITALS: BP 131/95
--- NOTE | 2024-12-24 16:17 | NUR ---
SHIFT SUMMARY PT AOX4, SBA TO THE BSC USING HIS CRUTCHES AT THE BS. ALSO AT THE BS MOST OF THE SHIFT. NO C/O CP OR PRESSURE, HE STATES "MILD" ABDOMINAL PAIN BUT IMPROVING THE SHIFT PROGRESSES. CT OF ABD DONE THIS SHIFT, ALSO FIRST PORTION OF STRESS TEST COMPLETED. PT TO BE NPO AT MIDNIGHT TONIGHT EXCEPT FOR MEDICATIONS PER NUCLEAR MEDICINE. PT IS ON RA, CALLS AND MAKES HIS NEEDS KNOWN. HGB STABLE. NO EVENTS PER TELE. TWO LOOSE BM'S, MARY RED BLOOD. PROVIDER AWARE. CALL LIGHT WITHIN REACH, BED LOCKED AND IN THE LOWEST POSITION. WILL REPORT TO ONCOMING NURSE.
[2024-12-24] MEDS ORDERED: Loperamide HCl 2 MG Cap PO PRN (19:00)
[2024-12-24] MEDS ORDERED: Loperamide HCl 2 MG Cap PO ONE (19:00)
[2024-12-24 19:37] VITALS: BP 125/55
[2024-12-25 00:28] VITALS: BP 122/60
[2024-12-25 04:55] VITALS: BP 135/64
--- NOTE | 2024-12-25 05:47 | NUR ---
SHIFT SUMMARY PATIENT ALERT, ORIENTED x4. ABLE TO MAKE NEEDS KNOWN. BP STABLE. ON RA WHILE AWAKE, CPAP WHILE SLEEPING. TELE READING SR, BBB. SECOND PORTION OF STRESS TEST TO BE COMPLETED TODAY. PATIENT RECEIVED ONE DOSE OF IMMODIUM WITH RELIEF, NO DIARRHEA THIS SHIFT PER PATIENT. NO OTHER CHANGES THIS SHIFT, WILL REPORT TO DAY SHIFT RN.
[2024-12-25] MEDS ORDERED: Insulin Human Lispro 100 Units/ML 3ML Syringe SC SCH (07:30)
[2024-12-25 07:46] VITALS: BP 122/64
[2024-12-25] MEDS ORDERED: Atorvastatin 40 MG Tab PO SCH (08:00)
[2024-12-25 09:07] LABS: BASOPHILS ABSOLUTE AUTO 0.05 K/mm3 (0.00-0.23); BASOPHILS PERCENT AUTO 1 % (0-2); EOSINOPHILS ABSOLUTE AUTO 0.36 K/mm3 (0.00-0.68); EOSINOPHILS PERCENT AUTO 5 % (0-6); Hematocrit 42.9 % (37.0-53.0); Hemoglobin 14.1 g/dL (13.5-17.5); IMMATURE GRAN ABSOLUTE AUTO 0.04 K/mm3 (0.00-0.10); IMMATURE GRAN PERCENT AUTO 1 % (0-1); LYMPHOCYTES PERCENT AUTO 24 % (21-46); MONOCYTES ABSOLUTE AUTO 0.56 K/mm3 (0.16-1.47); MONOCYTES PERCENT AUTO 7 % (4-13); Mean Corpuscular HGB 28.3 pg (26.0-34.0); Mean Corpuscular HGB Conc 32.9 g/dL (31.5-36.5); Mean Corpuscular Volume 86 fL (80-100); Mean Platelet Volume 9.7 fL (9.1-12.4); NEUTROPHILS ABSOLUTE AUTO 5.12 K/mm3 (1.96-9.15); NEUTROPHILS PERCENT AUTO 64 % (41-73); Platelet Count 275 K/mm3 (150-400); RDW Coefficient Variation 13.8 % (11.7-14.2); RDW Standard Deviation 43.2 fL (35.1-46.3); Red Blood Cell Count 4.99 M/mm3 (4.30-5.90); White Blood Cell Count 8.03 K/mm3 (4.00-11.30)
[2024-12-25 09:26] LABS: Bun/Creatinine Ratio 13.1 (12.0-20.0); Calcium, Blood 9.1 mg/dL (8.5-10.1); Creatinine, Blood 0.92 mg/dL (0.60-1.20); Magnesium, Blood 1.9 mg/dL (1.6-2.4); Phosphorus, Blood 3.1 mg/dL (2.5-4.9); Potassium, Blood 3.9 mmol/L (3.5-5.5)
[2024-12-25 15:52] VITALS: BP 120/70
--- NOTE | 2024-12-25 17:45 | NUR ---
SHIFT SUMMARY: PATIENT IS A&O X4, PLEASANT AND COOPERATIVE WITH CARE. NO ACUTE CHANGES NOTED DURING THIS SHIFT. PATIENT MAKES NEED KNOWN. MEDICATED PER MAR. REPOSITIONS SELF IN BED. CALL LIGHT WITHIN REACH, BED LOCKED AND IN LOWEST POSITION.
[2024-12-25 20:00] VITALS: BP 123/63
[2024-12-26] VITALS: BP 111/60
[2024-12-26 01:43] LABS: BASOPHILS ABSOLUTE AUTO 0.07 K/mm3 (0.00-0.23); BASOPHILS PERCENT AUTO 1 % (0-2); EOSINOPHILS ABSOLUTE AUTO 0.48 K/mm3 (0.00-0.68); EOSINOPHILS PERCENT AUTO 6 % (0-6); Hematocrit 43.1 % (37.0-53.0); Hemoglobin 14.3 g/dL (13.5-17.5); IMMATURE GRAN ABSOLUTE AUTO 0.04 K/mm3 (0.00-0.10); IMMATURE GRAN PERCENT AUTO 1 % (0-1); LYMPHOCYTES PERCENT AUTO 30 % (21-46); MONOCYTES ABSOLUTE AUTO 0.81 K/mm3 (0.16-1.47); MONOCYTES PERCENT AUTO 9 % (4-13); Mean Corpuscular HGB 28.5 pg (26.0-34.0); Mean Corpuscular HGB Conc 33.2 g/dL (31.5-36.5); Mean Corpuscular Volume 86 fL (80-100); NEUTROPHILS ABSOLUTE AUTO 4.62 K/mm3 (1.96-9.15); NEUTROPHILS PERCENT AUTO 54 % (41-73); Platelet Count 275 K/mm3 (150-400); RDW Coefficient Variation 13.5 % (11.7-14.2); RDW Standard Deviation 42.5 fL (35.1-46.3); Red Blood Cell Count 5.01 M/mm3 (4.30-5.90); White Blood Cell Count 8.62 K/mm3 (4.00-11.30)
[2024-12-26 04:00] VITALS: BP 151/89
--- NOTE | 2024-12-26 05:40 | NUR ---
SHIFT SUMMARY 64 YR M ADMITTED ON 12/23/24. FULL CODE. NO ACUTE CHANGES THIS SHIFT. PT HAD NO DIARRHEA THIS SHIFT AND ONLY 1 VERY SMALL BM FROM WHICH A STOOL SAMPLE WAS COLLECTED AND SENT TO LAB. PT IS A&O X 4 AND CALLS APPROPRIATELY FOR ASSISTANCE. NO C/O PAIN OR DISCOMFORT THIS SHIFT.
[2024-12-26] MEDS ORDERED: Empagliflozin 10 MG TAB PO SCH (08:00)
[2024-12-26 08:08] VITALS: BP 120/58
[2024-12-26] MEDS ORDERED: Vitamin B Cmplx/Vit C/Folic Ac 1 Tab PO SCH (08:30)
[2024-12-26] MEDS ORDERED: SEMAGLUTIDE SC SCH (08:30)
[2024-12-26] MEDS ORDERED: GlipiZIDE 5 MG Tab PO SCH (09:00)
[2024-12-26] MEDS ORDERED: Fenofibrate 67 MG Cap PO SCH (09:00)
[2024-12-26] MEDS ORDERED: Loratadine 10 MG Tab PO SCH (09:00)
[2024-12-26] MEDS ORDERED: Multivitamins/Minerals 1 Tab PO SCH (09:00)
[2024-12-26] MEDS ORDERED: Lactobacil 2-S.Thermo-Bifido 1 1 Cap PO SCH (09:00)
[2024-12-26] MEDS ORDERED: Cholecalciferol 1000 Unit Tablet (=25MCG) PO SCH (09:00)
[2024-12-26] MEDS ORDERED: Clopidogrel Bisulfate 75 MG Tab PO SCH (09:00)
[2024-12-26 10:12] LABS: Hematocrit 42.3 % (37.0-53.0); Hemoglobin 14.2 g/dL (13.5-17.5)
[2024-12-26] MEDS ORDERED: LOPE2C PO (11:37)
--- NOTE | 2024-12-26 13:12 | NUR ---
UPDATE DISCHARGE INSTRUCTIONS PROVIDED TO PT. PT EDUCATED ON NEW MEDICATIONS AND FOLLOW-UP. ALL QUESTIONS ANSWERED. PT TAKEN OUT VIA WC WITH ALL OF HIS BELONGINGS.
== END 2024-12-26 13:28 | disposition home or self-care (01) ==
LOC: ER 14:13 → ERHOLD 14:14 → PCU 14:14
PROVIDERS: Emergency Medicine; Family Medicine; Hospitalist; Internal Medicine; Student in an Organized Health Care Education/Training Program; Surgery; ADMIT Internal Medicine
DX: R07.89 Other chest pain (principal); R10.9 Unspecified abdominal pain; E11.9 Type 2 diabetes mellitus without complications; K92.1 Melena; K52.9 Noninfective gastroenteritis and colitis, unspecified; G47.30 Sleep apnea, unspecified; I25.2 Old myocardial infarction; N40.0 Benign prostatic hyperplasia without lower urinary tract symptoms; K76.0 Fatty (change of) liver, not elsewhere classified; K80.20 Calculus of gallbladder without cholecystitis without obstruction; E66.01 Morbid (severe) obesity due to excess calories; Z68.43 Body mass index [BMI] 50.0-59.9, adult; Z86.0100 Personal history of colon polyps, unspecified; Z79.02 Long term (current) use of antithrombotics/antiplatelets; Z79.4 Long term (current) use of insulin; Z79.82 Long term (current) use of aspirin; Z79.84 Long term (current) use of oral hypoglycemic drugs; Z79.85 Long-term (current) use of injectable non-insulin antidiabetic drugs; Z79.899 Other long term (current) drug therapy; Z88.0 Allergy status to penicillin; Z88.5 Allergy status to narcotic agent
CPT/HCPCS: 36415; 71045; 74177; 78452; 80048; 80053; 80061; 82947; 83735; 84100; 84484; 85014; 85018; 85025; 85610; 85651; 85730; 86140; 86141; 87493; 87507; 93005; 93010; 93017; 94762; 96374; 96376; 99285-25; A9270; A9500; G0378; J0280; J1815; J2470; J2785; Q9967